=== PATIENT | male | born 1990 | race Caucasian/White ===

== ENCOUNTER 2017-08-01 02:08 | Emergency (ER) | payer SELFPAY ==
[~2017-08-01] VITALS: Ht 180.3 cm; Wt 104.7 kg
[2017-08-01 02:10] VITALS: BP 160/99; PULSE 93; RESP 18; TEMP 97.8; O2SAT 99
[2017-08-01] MEDS ORDERED: IBUP1TAB7 PO (02:40)
[2017-08-01] MEDS ORDERED: AMOX500T PO (02:40)
[2017-08-01] MEDS ORDERED: LIDOCAINE HCL 1% 50 ML VIAL IM ONE (02:45)
[2017-08-01] MEDS ORDERED: KETOROLAC TROMETHAMINE 60 MG/2 ML (IM) VIAL IM ONE (02:45)
[2017-08-01] MEDS ORDERED: LIDOCAINE HCL 1% 20 ML VIAL INFIL ONE (02:45)
[2017-08-01] MEDS ORDERED: LIDOCAINE HCL 1% PF 5 ML AMPULE INFIL ONE (02:45)
[2017-08-01] MEDS ORDERED: AMOXICILLIN 875 MG TAB PO ONE (02:45)
--- NOTE | 2017-08-01 02:50 | PD ---
HPI Chief Complaint: Oral / Dental Pain or Problem Time Seen by Provider: 02:29 Travel History International Travel<30 days: No Contact w/Intl Traveler<30days: No Traveled to known affect area: No History of Present Illness HPI The patient is a 27-year-old male that complains of dental pain in tooth #13 for about a week. He denies any fever. He has had teeth resected before by [facility] and states he plans to call them later on this morning to have this tooth looked at. He complains of an aching pain, 9/10 in intensity. He does not want me to injected locally with lidocaine. [facility] Past Medical History Medical History: Denies Significant Hx Diminished Hearing: No Tetanus Vaccination: > 5 Years Influenza Vaccination: No ?: Not Past Surgical History Surgical History: No Previous Surgery Social History Alcohol Use: Yes (occassional) Tobacco Use: Yes (5 cigs per day) Substance Use: No Allergies-Medications (Allergen,Severity, Reaction): Coded Allergies: No Known Allergies (Unverified , 08/01/17) Reported Meds & Prescriptions Reported Meds & Active Scripts Active Percocet (Oxycodone-Acetaminophen) 5-325 mg Tab 1 Tab PO Q4H PRN Amoxicillin 500 Mg Tab 500 Mg PO TID 10 Days Ibuprofen 800 Mg Tab 800 Mg PO TID Review of Systems Except as stated in HPI: all other systems reviewed are Neg Physical Exam Narrative GENERAL: Well-nourished, well-developed patient in moderate apparent distress with his dental pain. His vital signs show blood pressure 160/99 but are otherwise normal. SKIN: Focused skin assessment warm/dry. No external swelling is noted on the face, no erythema is noted on the face. HEAD: Normocephalic. EYES: No scleral icterus. No injection or drainage. NECK: Supple, trachea midline. No JVD or lymphadenopathy. CARDIOVASCULAR: Regular rate and rhythm without murmurs, gallops, or rubs. RESPIRATORY: Breath sounds equal bilaterally. No accessory muscle use. GASTROINTESTINAL: Abdomen soft, non-tender, nondistended. MUSCULOSKELETAL: No cyanosis, or edema. BACK: Nontender without obvious deformity. No CVA tenderness. DENTAL: No loose or chipped teeth. No malocclusion. There is exquisite tenderness around tooth #13 but no drainable abscesses are noted. There is only minimal erythema in the area. Data Data Last Documented VS Vital Signs Date Time Temp Pulse Resp B/P (MAP) Pulse Ox O2 Delivery O2 Flow Rate FiO2 08/01/17 02:23 18 08/01/17 02:10 97.8 93 160/99 (119) 99 Orders Orders Ceftriaxone Inj (Rocephin Inj) (08/01/17 02:45) Ketorolac Inj (Toradol Inj) (08/01/17 02:45) Amoxicillin (Trimox) (08/01/17 02:45) Lidocaine Pf 1% Inj (Xylocaine-Mpf 1% In (08/01/17 02:45) Hydromorphone Pf Inj (Dilaudid Pf Inj) (08/01/17 03:15) Promethazine Inj (Phenergan Inj) (08/01/17 03:15) MDM Medical Decision Making Medical Screen Exam Complete: Yes Emergency Medical Condition: Yes Medical Record Reviewed: Yes Differential Diagnosis Drainable dental abscess, non-drainable dental abscess, dental infection, Reese's angina-highly unlikely Narrative Course I offered to inject the tooth locally with lidocaine but he did not want this. The patient appears to have a dental infection although he has very little swelling and no drainable abscessin the area. He is given prescriptions for ibuprofen and amoxicillin. The amoxicillin is 500 mg 3 times daily because the patient has no insurance and he can get this free at [facility]. The ibuprofen is 800 mg 3 times daily. He will have several refills on the amoxicillin. Diagnosis Primary Impression: Dental infection Additional Instructions: As we discussed, do not drink alcohol or drive on the Percocet 5. Follow-up with your dentist as you intend to do. Med/Other Pt SpecificInfo: Prescription(s) given Scripts Oxycodone-Acetaminophen (Percocet) 5-325 mg Tab 1 TAB PO Q4H Y for PAIN, #15 TAB 0 Refills Prov: Valentín Woodard MD 08/01/17 Amoxicillin (Amoxicillin) 500 Mg Tab 500 MG PO TID for Infection for 10 Days, #30 TAB 0 Refills Prov: Valentín Woodard MD 08/01/17 Ibuprofen (Ibuprofen) 800 Mg Tab 800 MG PO TID, #44 TAB 0 Refills Prov: Valentín Woodard MD 08/01/17 Valentín Woodard MD Aug 01, 2017 02:50
[2017-08-01] MEDS ORDERED: PROMETHAZINE INJ 25 MG/ML VIAL IM ONE (03:15)
[2017-08-01] MEDS ORDERED: HYDROmorphone HCL PF 2 MG/ML VIAL IM ONE (03:15)
[2017-08-01] MEDS ORDERED: PERC5TAB12 PO (03:18)
[2017-08-01 03:28] VITALS: BP 140/91; PULSE 71; RESP 18; O2SAT 96
== END 2017-08-01 03:58 | disposition home or self-care (01) ==
LOC: PHED 02:08
DX: K04.7 Periapical abscess without sinus (principal); F17.210 Nicotine dependence, cigarettes, uncomplicated
CPT/HCPCS: 96374; 96375; 99284; J0696; J1170; J1885; J2550

== ENCOUNTER 2017-08-22 04:41 | Emergency (ER) | payer SELFPAY ==
[~2017-08-22] VITALS: Ht 182.9 cm; Wt 106.0 kg
[~2017-08-22 04:41] MED LIST: AMOX500T PO; IBUP1TAB7 PO; PERC5TAB12 PO
[2017-08-22 04:54] VITALS: BP 146/74; PULSE 122; RESP 18; TEMP 98.8; O2SAT 96
== END 2017-08-22 06:40 | disposition left against medical advice (07) ==
LOC: PHED 04:41
DX: K08.89 Other specified disorders of teeth and supporting structures (principal); Z53.21 Procedure and treatment not carried out due to patient leaving prior to being seen by health care provider
CPT/HCPCS: 99281